=== PATIENT | female | born 1985 | race African-American/Black ===

== ENCOUNTER 2021-04-30 04:06 | Emergency (ER) | payer MEDICAID, OTHER ==
[~2021-04-30] VITALS: Ht 167.6 cm; Wt 161.4 kg
[2021-04-30] MEDS ORDERED: PENICILLIN V POTASSIUM 500 MG TABLET PO ONE (05:00)
[2021-04-30] MEDS ORDERED: IBUPROFEN 800 MG TABLET PO ONE (05:00)
[2021-04-30 06:24] VITALS: BP 135/89
== END 2021-04-30 06:29 | disposition home or self-care (01) ==
LOC: EMS 04:06
DX: K04.7 Periapical abscess without sinus (principal); I10 Essential (primary) hypertension; F17.210 Nicotine dependence, cigarettes, uncomplicated; F19.90 Other psychoactive substance use, unspecified, uncomplicated; Z86.73 Personal history of transient ischemic attack (TIA), and cerebral infarction without residual deficits
CPT/HCPCS: 99283

== ENCOUNTER 2021-09-01 20:07 | Emergency (ER) | payer MEDICAID ==
[~2021-09-01] VITALS: Ht 167.6 cm; Wt 136.4 kg
[~2021-09-01 20:07] MED LIST: AMLO-258 PO; APIX5TAB PO; ASPI-1450 PO; HYDR25TA84 PO
[2021-09-01 23:00] VITALS: BP 128/69
== END 2021-09-01 23:29 | disposition home or self-care (01) ==
LOC: EMS 20:09
DX: R51.9 Headache, unspecified (principal); I10 Essential (primary) hypertension; E11.9 Type 2 diabetes mellitus without complications; E78.00 Pure hypercholesterolemia, unspecified; E03.9 Hypothyroidism, unspecified; F12.90 Cannabis use, unspecified, uncomplicated; Z79.899 Other long term (current) drug therapy; Z91.018 Allergy to other foods
CPT/HCPCS: 70450; 82962; 99284